=== PATIENT | female | born 1950 | race Caucasian/White ===

== ENCOUNTER 2021-02-15 11:24 | Emergency (ER) | payer MEDICARE ==
[~2021-02-15] VITALS: Ht 157.5 cm; Wt 82.0 kg
[2021-02-15] MEDS ORDERED: HYDROCODONE/ACETAMINOPHEN 5/325MG TABLET PO STA (12:08)
[2021-02-15 12:33] VITALS: BP 144/74
[2021-02-15] MEDS ORDERED: T3 PO ×3 (15:31→15:56)
[2021-02-15] MEDS ORDERED: NAPR-681 PO ×3 (15:31→15:56)
== END 2021-02-15 16:42 | disposition home or self-care (01) ==
LOC: ER 11:24
DX: S82.831A Other fracture of upper and lower end of right fibula, initial encounter for closed fracture (principal); I10 Essential (primary) hypertension; E11.9 Type 2 diabetes mellitus without complications; M19.90 Unspecified osteoarthritis, unspecified site; E78.00 Pure hypercholesterolemia, unspecified; M17.12 Unilateral primary osteoarthritis, left knee; W10.8XXA Fall (on) (from) other stairs and steps, initial encounter; Y93.89 Activity, other specified; Y92.018 Other place in single-family (private) house as the place of occurrence of the external cause
CPT/HCPCS: 29515; 73562; 73610; 73630; 73700; 99284